=== PATIENT | female | born 1980 | race Caucasian/White ===

== ENCOUNTER 2018-02-17 21:58 | Observation (INO) | payer OTHER ==
[2018-02-17 22:36] LABS: PLATELET COUNT 172 10^3/uL (150-400)
== END 2018-02-17 23:46 | disposition home or self-care (01) ==
LOC: FLD 21:58
PROVIDERS: ADMIT Advanced Practice Midwife; ATTEND Advanced Practice Midwife
DX: Z03.89 Encounter for observation for other suspected diseases and conditions ruled out (principal); Z3A.37 37 weeks gestation of pregnancy
CPT/HCPCS: 59025; G0378

== ENCOUNTER 2018-02-21 15:00 | Inpatient (IN) | payer OTHER ==
[2018-02-21] MEDS ORDERED: LIDOCAINE 1% 300 MG/30 ML SDV SC PRN (17:22)
[2018-02-21] MEDS ORDERED: EPSOM SALT 454 GM TP PRN (17:22)
[2018-02-21] MEDS ORDERED: TERBUTALINE SULFATE 1 MG/ML VIAL IV PRN (17:22)
[2018-02-21] MEDS ORDERED: OLIVE OIL 118 ML BTL MISC PRN (17:22)
[2018-02-21] MEDS ORDERED: OXYTOCIN/NORMAL SALINE 1,000 ML IV PRN (17:22)
[2018-02-21] MEDS ORDERED: AMMONIA AROMATIC 1 EACH AMP IH PRN (17:22)
[2018-02-21] MEDS ORDERED: MISOPROSTOL 200 MCG TAB PO PRN (17:22)
[2018-02-21] MEDS ORDERED: LR 1,000 ML IV PRN (17:22)
[2018-02-21 19:06] LABS: PLATELET COUNT 157 10^3/uL (150-400)
[2018-02-21] MEDS ORDERED: ZOLPIDEM TARTRATE 5 MG TAB PO PRN (20:20)
[2018-02-22] MEDS: CALCIUM CARBONATE 500 MG CHEWABLE TAB PO PRN ×2 (00:13→23:25)
[2018-02-22] MEDS ORDERED: AMMONIA AROMATIC 1 EACH AMP IH ONE (07:18)
[2018-02-22] MEDS ORDERED: LIDOCAINE 1% 300 MG/30 ML SDV ONE (07:18)
[2018-02-22] MEDS ORDERED: OLIVE OIL 118 ML BTL ONE (07:18)
[2018-02-22] MEDS ORDERED: TERBUTALINE SULFATE 1 MG/ML VIAL ONE (07:18)
[2018-02-22] MEDS ORDERED: OXYTOCIN 10 UNIT/ML VIAL ONE (07:19)
[2018-02-22] MEDS ORDERED: MISOPROSTOL 200 MCG TAB ONE (07:19)
[2018-02-22] MEDS ORDERED: LR 500 ML IV PRN (07:39)
--- NOTE | 2018-02-22 07:39 | PDGENHP ---
History and Physical History and Physical: CARE: [facility] HPI: Patient is a [id number] with IUP@38-1wks that presents to L&D for IOL 2/ GHTN. She denies any EVANS's, visual changes, epigastric pain. She denies any regular contractions, LOF, VB. Reports +FM. She had meng bulb placed 02/21/18 in office and was sent to L&D. She had first elevated BP on 02/17/18, her Pre E labs have been normal. She was seen for PABLO visit in office 02/21/18 and was noted to have elevated BP 140-150/80-90 EDC: 03/07/18 which is based on LMP: 05/30/17 which is known and consistent with first trimester US. Her is complicated by: - AMA - h/o PreE with first - H/o PPH Review of Systems: Constitutional: Denies any fever, chills, or fatigue HEENT: denies any visual changes, difficulty swallowing, hearing loss Cardiovascular: Denies any chest pain, palpitations, leg swelling Respiratory: denies any cough, wheezing, or shortness of breathe GI: Denies any nausea, vomiting, diarrhea, constipation : denies any dysuria, urgency, frequency, vaginal bleeding Musculoskeletal: denies any muscle or bone pain Skin: denies any rashes Neuro: denies any headache, seizures, lightheadedness, dizziness, or loss of consciousness Psychiatric: denies any depression, anxiety, or SI/HI thoughts HISTORY: Previous OB history: x1 (7-13) Past medical history: noncontributory Past surgical history: oral surgery Medications: PNV, baby ASA Allergies (list reaction): NKDA LABS: Rh: O pos ABS: Neg Rubella: Immune HbsAg: NR HIV: NR VDRL: NR 1hr: 121 GC: Neg Chlamydia: Neg Pap: Normal GBS: negative BMI: (prepreg) 26 PHYSICAL EXAM: Constitutional: WN, A&Ox3 HEENT: normocephalic atraumatic, supple Heart: RRR, no murmur Chest: CTA-B Abdomen: Soft, nontender, gravid SVE: meng in place Extremities: trace edema, negative homans sign Neuro: grossly normal Psych: normal affect assessment: cat 1 FHR tracing Contractions: toco irregular Assessment: 1) [id number] with IUP@38-1wks 2) IOL 3) GHTN 4) Cat 1 FHR tracing 5) GBS Negative Plan: 1) Admit to L&D 2) pitocin 3) AROM when applicable 4) monitor BP closely 5) anticipate
[2018-02-22] MEDS ORDERED: OXYTOCIN/NORMAL SALINE 500 ML IV SCH ×2 (08:00→14:00)
[2018-02-22] MEDS ORDERED: BUPIVACAINE 0.25% 30 ML SDV ONE (10:21)
[2018-02-22] MEDS ORDERED: fentaNYL 100 MCG/2 ML INJ ONE (10:21)
[2018-02-22] MEDS ORDERED: PHENYLEPHRINE HCL 100 MCG/ML SYR ONE (10:22)
[2018-02-22] MEDS ORDERED: fentaNYL 200 MCG, BUPIVACAINE 0.5% 20 ML in NS 100 ML EP SCH ×2 (10:30→11:30)
[2018-02-22] MEDS ORDERED: PHENYLEPHRINE HCL 100 MCG/ML SYR IVP PRN (11:01)
--- NOTE | 2018-02-22 11:01 | PDANEPAE ---
ANE Past Medical History - Pulmonary History Hx Sleep Apnea: No - Chronic Pain History Chronic Pain: No ANE Review of Systems Review of Systems: ANE Patient History - Allergies Allergies/Adverse Reactions: No Known Allergies Allergy (Unverified 02/21/18 18:27) - Home Medications Home Medications: Docusate Sodium [Colace 100 MG (*)] 100 mg PO BID 02/22/16 [Last Taken 02/21/18 08:00] Lactobacillus Acidophilus [Probiotic] 1 cap PO DAILY 02/22/16 [Last Taken Unknown] Vit27&Calcium/Iron/FA [] 1 tab PO DAILY 02/22/16 [Last Taken 08:00] Ranitidine HCl [Zantac 75] 1 tab PO PRN PRN 02/22/16 [Last Taken Unknown] Evening Wyocena Oil Softgel 02/21/18 [Last Taken 02/21/18 08:00] Prilosec 02/21/18 [Last Taken 02/21/18 08:00] - Smoking Hx Smoking Status: Never smoked ANE Labs/Vital Signs - Labs Result Diagrams: 02/21/18 18:50 02/21/18 15:50 - Vital Signs Height: 172.72 cm Weight: 91.626 kg ANE Physical Exam - Airway Neck exam: FROM Mallampati Score: Class 2 Mouth exam: normal dental/mouth exam - Pulmonary Pulmonary: no respiratory distress - Cardiovascular Cardiovascular: regular rate and rhythym - ASA Status ASA Status: II ANE Anesthesia Plan Anesthesia Plan: epidural Urgent/Emergent Case: Anes felicity completed preop but documented later for safe timely pt care
[2018-02-22] MEDS ORDERED: fentaNYL 2MCG/ML/BUP 0.1% RTU 100 ML EP SCH (11:30)
[2018-02-22] MEDS ORDERED: LR 500 ML IV SCH (11:30)
--- NOTE | 2018-02-22 13:34 | OBDEL ---
Info Type: Vaginal Presentation at Delivery: Vertex L&D Analgesia/Anesthesia Type: Epidural GBS+: No Intrapartum Medications: Generic Name Dose Route Start Last Admin Trade Name Freq PRN Reason Stop Dose Admin Calcium Carbonate 1,000 mg 02/22/18 00:07 02/22/18 00:13 Tums PO 08/21/18 00:06 1,000 mg Q4HRS PRN Administration Acid Reflux Lactated Ringer's 1,000 mls @ 0 mls/hr 02/21/18 17:22 02/22/18 07:58 Lr IV 02/22/18 17:21 1,000 mls PRN PRN Administration SEE PROTOCOL CONDITIONS Protocol Per Protocol Oxytocin/Sodium Chloride 500 mls @ 0 mls/hr 02/22/18 08:00 02/22/18 07:58 Pitocin 30 Units/Ns (Premix) IV 08/21/18 07:59 500 mls CONT ELIAS Administration Protocol Per Protocol Indications for Delivery: Gestational Hypertension Vaginal Delivery - Delivery Provider Delivery Physician/CNM: Klaudia Martin - Labor and Delivery Onset of Contractions Date: 02/22/18 Onset of Contractions Time: 10:00 Onset of Contractions Type: Induced Rupture of Membranes Date: 02/22/18 Rupture of Membranes Time: 09:30 Rupture of Membranes Type: Artificial Amniotic Fluid Color: Clear Dilation Complete Date: 02/22/18 Dilation Complete Time: 12:41 Placenta Delivery Date: 02/22/18 Placenta Delivery Time: 13:03 Total Hours of Labor: 3 Non-surgical Procedures: Amniotomy Laceration: 1st Degree Repair: 2-0, Chromic Vaginal Sponge Count Correct: Yes Vaginal Needle Count Correct: Yes Vaginal Sweep Performed: Yes EBL: 200 Delivery Events: Nuchal Cord (x2, reduced) - Medications Labor Augmentation/Induction Methods Used: Pitocin, Naidu Bulb [place] Data AMANDA: 03/07/18 Gestational Age: 38 week(s) and 1 day(s) Box Delivery Date: 02/22/18 Delivery Time: 12:55 Sex of Infant: Female Score (1 Min): 8 Score (5 Min): 8 ICD10 Worksheet Patient Problems: Problems Problem Status Onset IOL for preeclampsia Acute PPH ( hemorrhage) Acute Vaginal delivery Acute
[2018-02-22] MEDS ORDERED: DOCUSATE SODIUM 100 MG CAP PO PRN (13:38)
[2018-02-22] MEDS ORDERED: SIMETHICONE 80 MG TAB CHEW PO PRN (13:38)
[2018-02-22] MEDS ORDERED: HYDROCORTISONE 0.5% CREAM TP PRN (13:38)
[2018-02-22] MEDS ORDERED: HYDROCODONE/APAP 5/325 TAB PO PRN (13:38)
[2018-02-22] MEDS ORDERED: ACETAMINOPHEN 325 MG TAB PO PRN (13:38)
--- NOTE | 2018-02-22 13:45 | POSTANESTH ---
Post Anesthetic Evaluation Cardiovascular Status: Similar to Pre-Op Cond Respiratory Status: Similar to Pre-op Cond. Level of Consciousness/Mental Status: Alert and Oriented Pain Control: Adequate, Prn Tx Ordered Nausea/Vomiting Control: Adequate, Prn Tx Ordered Complications Possibly Related to Anesthesia: None Noted
[2018-02-22] MEDS: IBUPROFEN 600 MG TAB PO PRN ×2 (14:05→20:06)
[2018-02-23] MEDS: IBUPROFEN 600 MG TAB PO PRN (05:59)
--- NOTE | 2018-02-23 10:49 | OBPP ---
Progress Note Assessment/Plan: Assessment: 37 y/o PPD #1 s/p IOL @ 38 weeks secondary to Gestational HTN. Plan: D/c home today with Rx Ibuprofen. Follow-up @ [facility] next week for BP check and I reviewed pre-eclampsia precautions. 02/23/18 10:47 Subjective/ Course: 02/23/18 10:45 Pt is doing well today. She has min uterine soreness and perineal pain, controlled with Ibuprofen. She is ambulating and voiding well and has min lochia. Breast feeding is going well and baby has a good latch. They are ready to d/c home. Objective: 02/23/18 06:10 02/21/18 15:50 Patient ABO/Rh O POSITIVE 02/21/18 18:50 Uric Acid 4.7 mg/dL (2.5-6.8) 02/21/18 15:50 Total Bilirubin 1.1 mg/dL (0.1-1.4) 02/21/18 15:50 Conjugated Bilirubin 0.3 mg/dL (0.0-0.5) 02/21/18 15:50 Unconjugated Bilirubin 0.8 mg/dL (0.0-1.1) 02/21/18 15:50 AST 22 IU/L (14-46) 02/21/18 15:50 ALT 28 IU/L (9-52) 02/21/18 15:50 Lactate Dehydrogenase 480 IU/L (313-618) 02/21/18 15:50 Temp Pulse Resp BP Pulse Ox 36.3 C 79 20 134/84 H 96 02/23/18 04:30 02/23/18 04:30 02/23/18 04:30 02/23/18 04:30 02/23/18 04:30 Uterine Position/Fundal Height: Umbilicus -2 Uterine Tone: Firm Physical Exam - Physical Exam General Appearance: WD/WN, alert, no apparent distress Neck: non-tender, full range of motion, supple Respiratory: chest non-tender, lungs clear, normal breath sounds Cardiac/Chest: regular rate, rhythm Abdomen: normal bowel sounds Extremities: swelling (no), Pb's sign (neg)
--- NOTE | 2018-02-23 10:49 | OBGCSDC ---
General Delivery Information - General Info : 2 Para: 2 Abortions: 0 Type: Vaginal L&D Analgesia/Anesthesia Type: Epidural Admission Date: 02/21/18 Labs: Patient ABO/Rh O POSITIVE 02/21/18 18:50 Hct 37.6 % (38.0-47.0) L 02/23/18 06:10 - Hospital Course : 02/23/18 10:45 Pt is doing well today. She has min uterine soreness and perineal pain, controlled with Ibuprofen. She is ambulating and voiding well and has min lochia. Breast feeding is going well and baby has a good latch. They are ready to d/c home. Vaginal - Delivery Provider Delivery Physician/CNM: Klaudia Martin - Diagnosis Labor: Induced Rupture of Membranes Type: Artificial Amniotic Fluid Color: Clear Laceration: 1st Degree Repair: 2-0, Chromic Delivery Events: Nuchal Cord (x2, reduced) - Procedures Non-surgical Procedures: Amniotomy - Delivery Non-surgical Procedures: Amniotomy EBL: 200 Data AMANDA: 03/07/18 Gestational Age: 38 week(s) and 2 day(s) Box Delivery Date: 02/22/18 Delivery Time: 12:55 Sex of : Female Weight (gm): 3458 kg Score (1 Min): 8 Score (5 Min): 8 Discharge Information - Discharge Information Prescriptions: Ibuprofen [Motrin (*)] 600 mg PO Q6HRS PRN #30 tab PRN Reason: post , inflammation Instruction/Follow Up: One Week, Four Weeks, Six Weeks
[2018-02-23 11:24] VITALS: BP 118/79
== END 2018-02-23 15:13 | disposition home or self-care (01) | DRG 775 ==
LOC: FLD 17:13 → FOB 02-22 15:40
PROVIDERS: ADMIT Obstetrics & Gynecology; ATTEND Obstetrics & Gynecology
PROC: 0HQ9XZZ Repair Perineum Skin, External Approach (ICD-10-PCS; principal; 2018-02-21)
PROC: 3E033VJ Introduction of Other Hormone into Peripheral Vein, Percutaneous Approach (ICD-10-PCS; principal; 2018-02-21)
PROC: 10907ZC Drainage of Amniotic Fluid, Therapeutic from Products of Conception, Via Natural or Artificial Opening (ICD-10-PCS; principal; 2018-02-21)
PROC: 10E0XZZ Delivery of Products of Conception, External Approach (ICD-10-PCS; principal; 2018-02-21)
DX: O13.4 Gestational [pregnancy-induced] hypertension without significant proteinuria, complicating childbirth (principal); O70.0 First degree perineal laceration during delivery; O69.81X0 Labor and delivery complicated by cord around neck, without compression, not applicable or unspecified; Z3A.38 38 weeks gestation of pregnancy; Z37.0 Single live birth
CPT/HCPCS: J2370; J2590; J3010; J3105